=== PATIENT | female | born 1945 | race African-American/Black ===

== ENCOUNTER 2018-11-08 14:09 | Inpatient (IN) | payer MEDICAID, MEDICARE ==
[~2018-11-08] VITALS: Ht 172.7 cm; Wt 85.3 kg
[2018-11-08] MEDS ORDERED: OLANZAPINE 10 MG VIAL IM ONE ×3 (14:45→14:54)
[2018-11-08] MEDS ORDERED: RISP1TAB7 PO (16:35)
[2018-11-08] MEDS ORDERED: RISP2TAB23 PO (16:35)
[2018-11-08] MEDS ORDERED: HYDR50CA PO (16:35)
[2018-11-08] MEDS ORDERED: BISM262O28 PO (16:35)
[2018-11-08] MEDS ORDERED: MAGN400O6 PO (16:35)
[2018-11-08] MEDS ORDERED: IBUP-1955 PO (16:35)
[2018-11-08] MEDS ORDERED: ROBITUSSIN DM PO (16:35)
[2018-11-08] MEDS ORDERED: ACET-2154 PO (16:35)
[2018-11-08] MEDS ORDERED: LORA-258 PO (16:35)
[2018-11-08] MEDS ORDERED: MAG30ORA PO (16:35)
[2018-11-08] MEDS ORDERED: LORAZEPAM 2 MG/1 ML VIAL IM ONE (17:15)
[2018-11-08] MEDS ORDERED: LORAZEPAM 2 MG/1 ML VIAL ONE (17:29)
[2018-11-08 18:18] LABS: BASOPHILS # (AUTO) 0.1 K/uL (0.0-8.0); BASOPHILS % (AUTO) 0.8 % (0.0-2.0); EOSINOPHILS # (AUTO) 0.3 K/uL (0.0-0.7); HEMATOCRIT 38.5 % (31.2-41.9); HEMOGLOBIN 12.5 g/dL (10.9-14.3); LYMPHOCYTES # (AUTO) 4.2 K/uL (20.0-40.0); LYMPHOCYTES % (AUTO) 44.2 % (20.5-51.5); MEAN CORPUSCULAR HEMOGLOBIN 30.7 uug (24.7-32.8); MEAN CORPUSCULAR HGB CONC 33 g/dL (32.3-35.6); MEAN CORPUSCULAR VOLUME 94.1 fL (75.5-95.3); MONOCYTES # (AUTO) 0.5 K/uL (2.0-10.0); MONOCYTES % (AUTO) 5.4 % (0.0-11.0); NEUTROPHILS # (AUTO) 4.4 K/uL (1.8-8.9); NEUTROPHILS % (AUTO) 46.6 % (38.5-71.5); PLATELET COUNT (AUTO) 202 K/uL (179-408); RED BLOOD CELL COUNT(AUTO) 4.09 MIL/uL (3.63-4.92); WHITE BLOOD COUNT (AUTO) 9.5 K/uL (3.8-11.8)
[2018-11-08 18:28] LABS: CARBON DIOXIDE 27 mmol/L (21-32); CHLORIDE 107 mmol/L (98-107); CREATININE 0.8 mg/dL (0.6-1.3); GLUCOSE 140 mg/dL (74-106); POTASSIUM 3.6 mmol/L (3.5-5.1); UREA NITROGEN, BLOOD 12 mg/dL (7-18)
[2018-11-08 18:33] LABS: ALANINE AMINOTRANSFERASE 13 U/L (14-59); ALKALINE PHOSPHATASE 92 U/L (50-136); ASPARTATE AMINOTRANSFERASE 14 U/L (15-37); BILIRUBIN,DIRECT 0.1 mg/dL (0.0-0.2); BILIRUBIN,TOTAL 0.2 mg/dL (0.2-1.0); ETHANOL < 3 MG/DL (0-0); TOTAL PROTEIN, SERUM 6.5 g/dL (6.4-8.2)
[2018-11-08 18:36] LABS: ACETAMINOPHEN < 2.0 ug/mL (10-30)
[2018-11-08 18:55] LABS: THYROID STIMULATING HORMONE 1.976 mIU/mL (0.358-3.740)
--- NOTE | 2018-11-08 19:30 | NUR ---
PT [address] PT WILL BE ADMITTED TO [facility] FOR [facility]YCHOS[facility] UNDER DR CHARLES / [place] TO ROOM 139A
--- NOTE | 2018-11-08 20:40 | NUR ---
PT HAND OFF AND SBAR DONE BY NUCLEAR PLANT TECHNICAL ADVISOR
[2018-11-08] MEDS ORDERED: MAGNESIUM HYDROXIDE 30 ML LIQUID UDC PO PRN (20:45)
[2018-11-08] MEDS ORDERED: TEMAZEPAM 7.5 MG CAPSULE PO PRN (20:45)
[2018-11-08] MEDS ORDERED: MAG HYDROX/AL HYDROX/SIMETH 30 ML LIQUID UDC PO PRN (20:45)
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
--- NOTE | 2018-11-08 21:00 | NUR ---
PT TRANSPORTED VIA GURNEY ACCOMPANIED BY MILKA
[2018-11-08] MEDS ORDERED: BISMUTH SUBSALICYLATE 262 MG/15 ML UDC PO PRN (22:15)
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
[2018-11-09] MEDS: LORAZEPAM 1 MG TABLET PO PRN ×2 (08:45→12:43)
[2018-11-09] MEDS: ACETAMINOPHEN 325 MG TABLET PO PRN (08:45)
[2018-11-09 15:46] VITALS: BP 118/61
[2018-11-09] MEDS ORDERED: FLUPHENAZINE HCL 5 MG TABLET PO SCH (20:00)
[2018-11-09] MEDS: FLUPHENAZINE HCL 5 MG TABLET PO SCH (21:03)
[2018-11-09] MEDS: CARBAMAZEPINE 200 MG TABLET PO SCH (21:03)
[2018-11-09] MEDS: BENZTROPINE MESYLATE 1 MG TABLET PO SCH (21:03)
[2018-11-10] MEDS ORDERED: BISMUTH SUBSALICYLATE 262 MG/15 ML UDC PO PRN (06:30)
[2018-11-10 07:30] VITALS: BP 172/80
[2018-11-10] MEDS: BENZTROPINE MESYLATE 1 MG TABLET PO SCH ×2 (08:15→20:08)
[2018-11-10] MEDS: CARBAMAZEPINE 200 MG TABLET PO SCH ×2 (08:15→20:09)
[2018-11-10] MEDS: FLUPHENAZINE HCL 5 MG TABLET PO SCH ×2 (08:15→20:00)
[2018-11-10] MEDS ORDERED: FLUPHENAZINE HCL 5 MG TABLET PO SCH (09:00)
[2018-11-10] MEDS ORDERED: BENZTROPINE MESYLATE 0.5 MG TABLET PO SCH (09:00)
[2018-11-10 10:26] LABS: BASOPHILS # (AUTO) 0.1 K/uL (0.0-8.0); BASOPHILS % (AUTO) 0.9 % (0.0-2.0); EOSINOPHILS # (AUTO) 0.1 K/uL (0.0-0.7); HEMATOCRIT 40.7 % (31.2-41.9); HEMOGLOBIN 13.2 g/dL (10.9-14.3); LYMPHOCYTES # (AUTO) 2.2 K/uL (20.0-40.0); LYMPHOCYTES % (AUTO) 34.6 % (20.5-51.5); MEAN CORPUSCULAR HEMOGLOBIN 30.5 uug (24.7-32.8); MEAN CORPUSCULAR HGB CONC 32 g/dL (32.3-35.6); MEAN CORPUSCULAR VOLUME 94.1 fL (75.5-95.3); MONOCYTES # (AUTO) 0.4 K/uL (2.0-10.0); NEUTROPHILS # (AUTO) 3.6 K/uL (1.8-8.9); NEUTROPHILS % (AUTO) 56.5 % (38.5-71.5); PLATELET COUNT (AUTO) 181 K/uL (179-408); RED BLOOD CELL COUNT(AUTO) 4.33 MIL/uL (3.63-4.92); WHITE BLOOD COUNT (AUTO) 6.4 K/uL (3.8-11.8)
[2018-11-10 10:42] LABS: BILIRUBIN,TOTAL 0.2 mg/dL (0.2-1.0); POTASSIUM 3.9 mmol/L (3.5-5.1); TOTAL PROTEIN, SERUM 6.5 g/dL (6.4-8.2)
[2018-11-10 10:49] LABS: THYROID STIMULATING HORMONE 0.509 mIU/mL (0.358-3.740)
[2018-11-10 17:02] VITALS: BP 131/65
[2018-11-10 20:00] VITALS: BP 161/54
[2018-11-11 00:17] LABS: *BILIRUBIN,URIN NEGATIVE (NEGATIVE); *BLOOD, URINE NEGATIVE (NEGATIVE); *CLARITY,URINE CLEAR (CLEAR); *COLOR,URINE YELLOW (YELLOW); *KETONES,URINE NEGATIVE (NEGATIVE); *UROBILINOGEN,URINE 0.2 E.U./dl (NORMAL); LEUKOCYTE ESTERASE ,URINE NEGATIVE (NEGATIVE); NITRITE, URINE NEGATIVE (NEGATIVE); PH,URINE 5.5 (5.0-8.0)
--- NOTE | 2018-11-11 00:30 | NUR ---
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
[2018-11-11 00:35] LABS: UGLUCOSE 2+ (NEGATIVE)
[2018-11-11 00:57] LABS: *AMPHETAMINE, URINE NEGATIVE (NEGATIVE); *BARBITURATE, URINE NEGATIVE (NEGATIVE); *CANNABINOID, URINE NEGATIVE (NEGATIVE); *COCCAINE, URINE NEGATIVE (NEGATIVE); *OPIATE, URINE NEGATIVE (NEGATIVE); *PHENCYCLIDINE SCREEN,URINE NEGATIVE (NEGATIVE)
[2018-11-11 02:02] LABS: BACTERIA,URINE NONE SEEN /HPF (NONE SEEN); RBC,URINE 0-3 /HPF (0-3); SQUAMOUS EPITHELIAL CELL,UR FEW /HPF (NONE SEEN); WBC,URINE 0-3 /HPF (0-3)
--- NOTE | 2018-11-11 06:38 | NUR ---
SHE KEPT PACING BACK AND FORTH THE HALLWAY AND SLEPT FOR ONLY 1;30HRS.SHE HOWEVER AGREED TO A SHOWER.
[2018-11-11 07:30] VITALS: BP 162/71
[2018-11-11] MEDS: CARBAMAZEPINE 200 MG TABLET PO SCH ×2 (08:23→20:40)
[2018-11-11] MEDS: FLUPHENAZINE HCL 5 MG TABLET PO SCH ×2 (08:23→20:40)
[2018-11-11] MEDS: BENZTROPINE MESYLATE 1 MG TABLET PO SCH ×2 (08:23→20:40)
[2018-11-11] MEDS ORDERED: DEXTROSE 50% 50 ML DISP.SYRIN IV PRN (11:15)
[2018-11-11] MEDS ORDERED: INSULIN REGULAR, HUMAN 300 UNITS/3 ML VIAL SQ PRN (11:15)
[2018-11-11] MEDS: BLOOD SUGAR DIAGNOSTIC 1 EACH STRIP VI SCH ×3 (11:57→20:49)
[2018-11-11] MEDS: INSULIN REGULAR, HUMAN 300 UNIT/3 ML VIAL SQ PRN ×2 (12:23→17:21)
[2018-11-11 16:19] VITALS: BP 120/59
--- NOTE | 2018-11-11 16:21 | NUR ---
Initial discharge plan Patient is currently homeless and needs residential placement. Per patient, she would like somewhere she can live such as a senior living. SW will continue to work with patient, family, and MD to form a safe and proper discharge plan.
[2018-11-11] MEDS: METFORMIN HCL 500 MG TABLET PO SCH (17:19)
--- NOTE | 2018-11-11 18:40 | NUR ---
Patient has been cooperative with medications and new insulin and glucose check regimen. Patient has some occasional outbursts and appears to be interacting with external stimuli.
[2018-11-12] MEDS: BLOOD SUGAR DIAGNOSTIC 1 EACH STRIP VI SCH ×4 (06:39→20:27)
[2018-11-12 07:55] VITALS: BP 152/58
[2018-11-12] MEDS: INSULIN REGULAR, HUMAN 300 UNIT/3 ML VIAL SQ PRN ×3 (07:57→20:28)
[2018-11-12] MEDS: FLUPHENAZINE HCL 5 MG TABLET PO SCH ×2 (08:35→20:27)
[2018-11-12] MEDS: METFORMIN HCL 500 MG TABLET PO SCH ×2 (08:36→17:14)
[2018-11-12] MEDS: BENZTROPINE MESYLATE 1 MG TABLET PO SCH ×2 (08:36→20:27)
[2018-11-12] MEDS: CARBAMAZEPINE 200 MG TABLET PO SCH ×2 (09:40→20:27)
--- NOTE | 2018-11-12 10:36 | NUR ---
SW Note SW tried to contact patient's daughter, Kaur [[phone]] but unable to reach. Left voicemail to call back. Will continue to follow up.
[2018-11-12 15:12] VITALS: BP 125/64
[2018-11-12 20:13] VITALS: BP 124/61
[2018-11-13] MEDS: BLOOD SUGAR DIAGNOSTIC 1 EACH STRIP VI SCH ×4 (06:16→21:13)
[2018-11-13] MEDS: BENZTROPINE MESYLATE 1 MG TABLET PO SCH ×2 (09:06→21:13)
[2018-11-13] MEDS: CARBAMAZEPINE 200 MG TABLET PO SCH ×2 (09:06→21:13)
[2018-11-13] MEDS: FLUPHENAZINE HCL 5 MG TABLET PO SCH ×2 (09:06→21:13)
[2018-11-13] MEDS: METFORMIN HCL 500 MG TABLET PO SCH ×2 (09:06→16:55)
[2018-11-13] MEDS: INSULIN REGULAR, HUMAN 300 UNIT/3 ML VIAL SQ PRN ×4 (09:11→21:17)
[2018-11-13 09:40] VITALS: BP 142/64
--- NOTE | 2018-11-13 12:26 | NUR ---
FIREARMS REPORT: Production Artist completed and submitted a [employer] firearms report for 5250 grave disability and danger to others certification. A copy of report has been placed in patient chart.
[2018-11-13 16:19] VITALS: BP 144/57
[2018-11-13 21:28] VITALS: BP 119/47
[2018-11-14] MEDS: BLOOD SUGAR DIAGNOSTIC 1 EACH STRIP VI SCH ×4 (06:10→20:24)
[2018-11-14] MEDS: INSULIN REGULAR, HUMAN 300 UNIT/3 ML VIAL SQ PRN ×3 (09:09→16:58)
[2018-11-14] MEDS: CARBAMAZEPINE 200 MG TABLET PO SCH ×2 (09:10→20:26)
[2018-11-14] MEDS: METFORMIN HCL 500 MG TABLET PO SCH ×2 (09:10→18:21)
[2018-11-14 10:00] VITALS: BP 128/52
[2018-11-14] MEDS: BENZTROPINE MESYLATE 1 MG TABLET PO SCH ×2 (13:29→18:21)
[2018-11-14] MEDS: FLUPHENAZINE HCL 5 MG TABLET PO SCH ×2 (13:29→17:49)
[2018-11-14] MEDS: ACETAMINOPHEN 325 MG TABLET PO PRN (13:34)
[2018-11-14] MEDS ORDERED: BACITRACIN ZINC OINT 15 GM TUBE TOP SCH (14:15)
[2018-11-14 16:18] VITALS: BP 124/54
[2018-11-14] MEDS ORDERED: MAGNESIUM HYDROXIDE 30 ML LIQUID UDC PO PRN (17:45)
[2018-11-14] MEDS ORDERED: ACETAMINOPHEN 325 MG TABLET PO PRN (17:45)
[2018-11-14] MEDS ORDERED: BISMUTH SUBSALICYLATE 262 MG/15 ML UDC PO PRN (17:45)
[2018-11-14] MEDS ORDERED: INSULIN REGULAR, HUMAN 300 UNIT/3 ML VIAL SQ PRN ×2 (17:45→18:30)
[2018-11-14] MEDS ORDERED: BLOOD SUGAR DIAGNOSTIC 1 EACH STRIP VI SCH (17:45)
[2018-11-14] MEDS ORDERED: LORAZEPAM 1 MG TABLET PO PRN (17:45)
[2018-11-14] MEDS ORDERED: DEXTROSE 50% 50 ML DISP.SYRIN IV PRN ×2 (17:45→18:30)
[2018-11-14] MEDS ORDERED: TEMAZEPAM 7.5 MG CAPSULE PO PRN (17:45)
[2018-11-14] MEDS ORDERED: MAG HYDROX/AL HYDROX/SIMETH 30 ML LIQUID UDC PO PRN (17:45)
[2018-11-14] MEDS ORDERED: INSULIN REGULAR, HUMAN 300 UNITS/3 ML VIAL SQ PRN (18:30)
[2018-11-14] MEDS ORDERED: FLUPHENAZINE HCL 5 MG TABLET PO SCH (21:00)
[2018-11-14 21:25] VITALS: BP 127/56
[2018-11-14] MEDS: BACITRACIN ZINC OINT 15 GM TUBE TOP SCH (21:50)
--- NOTE | 2018-11-14 23:14 | NUR ---
PATIENT RECEIVED IN ROOM AWAKE. PATIENT COMPLAINT WITH MEDICATION. NO AGGRESSIVE BEHAVIOR NOTED, NO AGITATION NOTED WILL CONTINUE TO MONITOR AND REDIRECT NEEDED. BED IN LOWEST POSITION, BED LOCKED, AND BED ALARM ON WHILE IN BED.
[2018-11-15] MEDS: BLOOD SUGAR DIAGNOSTIC 1 EACH STRIP VI SCH ×3 (06:40→12:09)
[2018-11-15] MEDS: METFORMIN HCL 500 MG TABLET PO SCH (08:30)
[2018-11-15] MEDS: CARBAMAZEPINE 200 MG TABLET PO SCH (08:30)
[2018-11-15] MEDS: FLUPHENAZINE HCL 5 MG TABLET PO SCH ×2 (08:30→12:53)
[2018-11-15] MEDS: BENZTROPINE MESYLATE 1 MG TABLET PO SCH ×2 (08:36→12:53)
[2018-11-15 08:46] VITALS: BP 126/74
[2018-11-15] MEDS: BACITRACIN ZINC OINT 15 GM TUBE TOP SCH (12:16)
--- NOTE | 2018-11-15 14:30 | NUR ---
Discharge planning SW reached out to several homeless shelters [information below] regarding availability for female bed and warm handoff, and received the following responses: [facility] [[phone]; spoke with Andrea who stated that they have a top bunk available but cannot accommodate the patient.] [facility] [[phone]; Called numerous times throughout the day and left voicemail, unable to reach direct person, not receiving a call back.] [facility] [[phone]; spoke with eda yan who forwarded my call to their womens department several times and left voicemail, no answer or call back] [facility] [[phone]; Spoke with Rashid who stated they do not accept hospital discharge same day, and need to evaluate the patient prior to accepting them] [facility] [[phone]; spoke with Zoraida, who stated they do not have beds available] [facility] [[phone]; Spoke with eda yna who informed that they are not a halfway providing facility]
--- NOTE | 2018-11-15 14:30 | NUR ---
Discharge Note Patient will be discharged to [facility] [[address] [place] [address]; ]. Patient will be discharged at 2:30pm and will be transported via bus. The patient was provided with a TAP card and specific directions from [facility] to the [facility]. Patient is alert and oriented x4, is able to plan for self-care, and denies suicidal or homicidal ideation. Patient will follow-up at the [facility] for medical needs. The patient says she will go to [facility] [[address] [place] [address]; ] for food and senior living. She states she is well known to them. idea worker cannot do a warm handoff to the [facility] since they do not pickler helper the phone. For this reason,. She will not be transported there. The patient was provided with the information for [facility] [[phone]; spoke with Marycruz Larson, who gave information regarding the services they offer such as, mental health resources, therapy, psychiatry services, transportation for patients, and referral to their Full-Service Partnership (FSP) program. Patient needs to walk in anywhere between the hours of 8:00am-5:00pm to get accepted. Patient was provided with the homeless senior living packet, which includes a list of emergency shelters, housing resources, drop in centers, and showers/hot meals centers. This also included the Homeless Information Hotline (669)-211-9670 or 211, [employer] [facility] [employer] , and the [facility] (775)-541-7878. Patient was also provided with outpatient mental health resources to [facility] Crisis [facility] , and the National Suicide Prevention Lifeline . Patient declined placement downtown at shelters. She is very streetwise and able to navigate homeless resources. Patient was very eager to leave and was calm and cooperative at discharge.
[2018-11-15 15:01] VITALS: BP 165/77
--- NOTE | 2018-11-15 16:27 | NUR ---
1520 discharged instructions given to the patient regarding medications to continue at home- patient verbalized understanding. Prescription given and instructed to refill it to her pharmacy. [address] Hernandez with discharged order.![id number] Discharged patient home buy bus with bus card from [facility].
== END 2018-11-15 16:25 | disposition home or self-care (01) | DRG 885 ==
LOC: ER 14:09 → GPS 20:22 → UNDODISIN 11-14 13:52 → GPS 11-14 13:59
PROVIDERS: ADMIT Psychiatry & Neurology Psychiatry; ATTEND Student in an Organized Health Care Education/Training Program
DX: F25.9 Schizoaffective disorder, unspecified (principal); E11.65 Type 2 diabetes mellitus with hyperglycemia; E44.0 Moderate protein-calorie malnutrition; F41.9 Anxiety disorder, unspecified; F17.210 Nicotine dependence, cigarettes, uncomplicated; I45.10 Unspecified right bundle-branch block
CPT/HCPCS: 36415; 70030-TC; 71045; 80307; 84443; 85025; 85730; 87086; 93005; A4663; G0480; G0480-TC; J1815; J2060; J2358